=== PATIENT | female | born 1965 | race Caucasian/White ===

== ENCOUNTER → 2019-01-03 | Outpatient (CLI) | payer OTHER ==
--- NOTE | 2019-01-05 08:10 | CT ---
EXAMINATION TYPE: CT abdomen pelvis w con DATE OF EXAM: 01/03/2019 COMPARISON: None HISTORY: Diverticulitis CT DLP: 740 mGycm CONTRAST: CT scan of the abdomen and pelvis is performed with Oral Contrast and with IV Contrast, patient injec sarah with 100 ml mL of Isovue 300. FINDINGS: LUNG BASES-: No visible nodule. No infiltrate. LIVER/GB: No calcified gallstones. No space occupying hepatic lesion. Biliary tree is of normal ca liber. PANCREAS: No inflammation. No distinct mass. SPLEEN: No splenic enlargement. No lesion seen. ADRENALS: No nodule. No thickening. KIDNEYS/BLADDER: No hydronephrosis. No nephrolithiasis. No distinct renal mass. Urinary bladder g rossly unremarkable. BOWEL: Normal appendix. Normal bowel caliber. There is mild strandy attenuation adjacent to the sigm oid colon. Mild diverticulitis difficult to exclude. Correlate clinically. No evidence of perforation or abscess. GENITAL ORGANS: No gross abnormality. LYMPH NODES: No greater than 1cm abdominal or pelvic lymph nodes are appreciated. AORTA: No significant abnormality. OSSEOUS STRUCTURES: No significant abnormality is seen. OTHER: No significant additional abnormality is seen. IMPRESSION: 1. There is mild strandy attenuation adjacent to the sigmoid colon. Mild diverticulitis difficult to exclude. Correlate clinically. No evidence of perforation or abscess.
== END | disposition home or self-care (01) ==
LOC: RADCTMAIN 10:57
PROVIDERS: ATTEND Surgery Plastic and Reconstructive Surgery
DX: K57.92 Diverticulitis of intestine, part unspecified, without perforation or abscess without bleeding (principal)
CPT/HCPCS: 74177; Q9967

== ENCOUNTER → 2019-01-26 | Outpatient (CLI) | payer OTHER ==
--- NOTE | 2019-01-26 15:06 | NM ---
EXAMINATION TYPE: NM hepatobiliary w EF DATE OF EXAM: 01/26/2019 COMPARISON: CT abdomen and pelvis January 03, 2019. HISTORY: Gallstones per order. Epigastric and abdominal pain with diminished appetite heartburn and r eflux-like symptoms along with nausea per patient. TECHNIQUE: After the intravenous administration of 4.17 mCi Tc 99m Mebrofenin hepatobiliary scintigra phy is performed. Immediate images post injection. FINDINGS: There is satisfactory initial accumulation of tracer by the liver. The gallbladder is visualized wit hin 20 minutes. The small bowel activity is noted within 30 minutes. At one hour 8 ounces of oral e nsure plus is given to mimic CCK and gallbladder ejection fraction is calculated at 90 %, not deviate d from the normal range. Therefore there is no scintigraphic evidence of cystic or common bile duct obstruction to suggest acute cholecystitis. IMPRESSION: Ejection fraction is 90%, not deviated from the normal range.
== END | disposition home or self-care (01) ==
LOC: RADNMMAIN 12:48
PROVIDERS: ATTEND Surgery Plastic and Reconstructive Surgery
DX: K80.20 Calculus of gallbladder without cholecystitis without obstruction (principal)
CPT/HCPCS: 78226; A9537

== ENCOUNTER 2019-03-12 10:39 | Day surgery (SDC) | payer BC, OTHER ==
[2019-03-10 14:31] VITALS: BMI 19.7
--- NOTE | 2019-03-12 07:48 | P.GSHP ---
History of Present Illness H&P Date: 03/12/19 CHIEF COMPLAINT: GERD and colon screen HISTORY OF PRESENT ILLNESS: The patient is a 53-year-old female who presents with gastroesophageal reflux disease and need for colon screen. Upper and lower endoscopy were offered for further evaluation and management. PAST MEDICAL HISTORY: Please see list. PAST SURGICAL HISTORY: Please see list. MEDICATIONS: Please see list. ALLERGIES: Please see list. SOCIAL HISTORY: No illicit drug use FAMILY HISTORY: No reports of Crohn disease or ulcerative colitis. REVIEW OF ORGAN SYSTEMS: CONSTITUTIONAL: No reports of fevers or chills. GI: Denies any blood in stools or constipation. PHYSICAL EXAM: VITAL SIGNS: Stable GENERAL: Well-developed pleasant in no acute distress. HEENT: No scleral icterus. Extraocular movements grossly intact. Moist buccal mucosa. NECK: Supple without lymphadenopathy. CHEST: Unlabored respirations. Equal bilateral excursions. CARDIOVASCULAR: Regular rate and rhythm. Distal 2+ pulses. ABDOMEN: Soft, nondistended. MUSCULOSKELETAL: No clubbing, cyanosis, or edema. ASSESSMENT: 1. Gastroesophageal reflux disease 2. Colon screen. PLAN: 1. Recommend proceeding with an upper and lower endoscopy Past Medical History Past Medical History: Osteoarthritis (OA) Additional Past Medical History / Comment(s): migraines, hiatal hernia, ux ulcer, diff swallowing, "gas buildup", degenerative disks, History of Any Multi-Drug Resistant Organisms: None Reported Additional Past Surgical History / Comment(s): pain clinic procedure Past Anesthesia/Blood Transfusion Reactions: Motion Sickness Smoking Status: Current every day smoker - Past Family History Father Family Medical History: Cancer Medications and Allergies Home Medications Medication Instructions Recorded Confirmed Type ALPRAZolam [Xanax] 0.25 mg PO TID PRN 03/10/19 03/10/19 History Hydrocodone/Acetaminophen [[place] 1 tab PO TID 03/10/19 03/10/19 History 7.5-325] Omeprazole [PriLOSEC] 40 mg PO BID 03/10/19 03/10/19 History Allergies Allergy/AdvReac Type Severity Reaction Status Date / Time No Known Allergies Allergy Verified 03/10/19 14:22
[~2019-03-12 10:39] MED LIST: LACTATED RINGERS 1,000 ML IV SCH
[2019-03-12 11:33] VITALS: RESP 16; TEMP 99
[2019-03-12] MEDS ORDERED: LIDOCAINE 1% 20 ML VIAL (10MG/ML) FOR IV START INTRADERMA ONE (11:40)
[2019-03-12] MEDS ORDERED: LIDOCAINE 1% INJ 10MG/ML (20 ML MDV) ONE (11:44)
[2019-03-12] MEDS ORDERED: PROPOFOL 10 MG/ML 20 ML VIAL IV ONE (11:44)
--- NOTE | 2019-03-12 11:56 | P.PCN ---
Date of Procedure: 03/12/19 Description of Procedure: PREOPERATIVE DIAGNOSIS: Gastroesophageal reflux disease. POSTOPERATIVE DIAGNOSIS: Gastroesophageal reflux disease. Diaphragmatic hiatal hernia Chronic gastritis OPERATION: Esophagogastroduodenoscopy with biopsies along antrum. SURGEON: Erin Rich MD ANESTHESIA: MAC. INDICATIONS: The patient is a 53-year-old female who presents with a history of reflux disease. Benefits and risks of the procedure were described. Informed consent was obtained. DESCRIPTION: The patient was brought into the endoscopy suite and laid in the left lateral decubitus position. An Olympus gastroscope was passed along the posterior oropharynx down to the distal esophagus where the squamocolumnar junction was encountered at 37 cm from the incisors. The stomach was entered and no bile reflux was found. Additional findings are listed below. Biopsies with cold forceps were obtained of the antrum. The first through third portion of the duodenum was examined and unremarkable. Retroflexion of the scope confirmed Hill grade 3 lower esophageal valve. The squamocolumnar junction demonstrated LA grade B erosive esophagitis. The stomach was desufflated. The patient tolerated the procedure well. FINDINGS: Squamocolumnar junction 37 cm from the incisors. Diaphragmatic hiatus at 40 cm. Hiatal hernia, 3 cm Hill grade 3 lower esophageal valve. LA grade B erosive esophagitis. No active duodenitis. Chronic gastritis RECOMMENDATIONS: Upper endoscopy as needed.
--- NOTE | 2019-03-12 12:26 | P.PCN ---
Date of Procedure: 03/12/19 Description of Procedure: PREOPERATIVE DIAGNOSIS: Colonoscopy screening, first POSTOPERATIVE DIAGNOSIS: Colonoscopy screening, first Proximal transverse colon polyp OPERATION: Colonoscopy to the ileocecal valve and appendiceal orifice. Colonoscopy with cold forceps biopsy, proximal transverse colon SURGEON: Erin Rich MD. ANESTHESIA: MAC. INDICATIONS: The patient is a 53-year-old female who presents for colonoscopy screening. She presents for the first time for colonoscopy screening. Benefits and risks were described and informed consent was obtained. DESCRIPTION OF PROCEDURE: The patient had undergone Suprep. She had been brought into the operating room and laid in the left lateral decubitus position. After adequate intravenous sedation, the rectum was examined with 2% lidocaine jelly. No external hemorrhoids were encountered. The rectal tone was within normal limits. No lesions were palpated in the rectal vault. An Olympus colonoscope was advanced until the ileocecal valve and appendiceal orifice were clearly viewed. The prep was excellent with clear visualization of the mucosal folds. No scattered diverticulosis was encountered. At the proximal transverse colon, 4 mm tubular adenoma was cold forceps biopsy to completion. No evidence of focal colitis was found. Retroflexion of the scope demonstrated grade 1 internal hemorrhoids without active bleeding or inflammation. The colon was desufflated. The patient had tolerated the procedure well. Withdrawal time was over 6 minutes. FINDINGS: Aronchick preparation quality scale 1 (1-5) Internal hemorrhoids, grade 1 No external prolapsed hemorrhoids. No arteriovenous malformations. Removal of one polyp: - Cold forceps biopsies proximal transverse colon, 4 mm tubular villous adenoma No focal colitis. RECOMMENDATIONS: Repeat colonoscopy in 5 years, 2024 Plan - Discharge Summary New Discharge Prescriptions: No Action Hydrocodone/Acetaminophen [[place] 7.5-325] 1 tab PO TID ALPRAZolam [Xanax] 0.25 mg PO TID PRN PRN Reason: Anxiety Omeprazole [PriLOSEC] 40 mg PO BID Discharge Medication List ALPRAZolam [Xanax] 0.25 mg PO TID PRN 03/10/19 [History] Hydrocodone/Acetaminophen [[place] 7.5-325] 1 tab PO TID 03/10/19 [History] Omeprazole [PriLOSEC] 40 mg PO BID 03/10/19 [History] Follow up Appointment(s)/Referral(s): Erin Rich MD [STAFF PHYSICIAN] - 03/31/19 Patient Instructions/Handouts: *Surgery [facility] - (Anesthesia) Endoscopy Discharge Instructions, Gastritis (DC), Colorectal Polyps (DC), Colonoscopy (DC), Upper Endoscopy (DC), Colorectal Polyps (GEN) Activity/Diet/Wound Care/Special Instructions: Repeat colonoscopy 5 years, 2024 Discharge Disposition: HOME SELF-CARE
[2019-03-12 12:35] VITALS: BP 102/57; PULSE 81
== END 2019-03-12 12:50 | disposition home or self-care (01) ==
LOC: ORWHC2ENDO 10:39
PROVIDERS: ATTEND Surgery Plastic and Reconstructive Surgery
DX: Z12.11 Encounter for screening for malignant neoplasm of colon (principal); D12.3 Benign neoplasm of transverse colon; K64.0 First degree hemorrhoids; K29.50 Unspecified chronic gastritis without bleeding; K21.0 Gastro-esophageal reflux disease with esophagitis; K22.10 Ulcer of esophagus without bleeding; K44.9 Diaphragmatic hernia without obstruction or gangrene; M19.90 Unspecified osteoarthritis, unspecified site; G43.909 Migraine, unspecified, not intractable, without status migrainosus; F17.200 Nicotine dependence, unspecified, uncomplicated; Z79.899 Other long term (current) drug therapy; Z79.891 Long term (current) use of opiate analgesic
CPT/HCPCS: 81025; 88305; 45380; 43239; J2001; J2704

== ENCOUNTER 2019-11-23 08:46 | Day surgery (SDC) | payer BC ==
[2019-11-19 13:48] VITALS: BMI 19.2
[~2019-11-23 08:46] MED LIST changes: +DEXAMETHASONE SOD PHOSPHATE 10 MG/ML 1 ML VIAL IV ONE; +HYDROmorphone 0.5 MG/0.5 ML SYRINGE IVP PRN; +ONDANSETRON 4 MG/2 ML VIAL IVP ONE; +Pre Op ABX Message 1 EACH MISC MISCELLANE ONE; +SCOPOLAMINE 1.5MG/72HR PATCH TRANSDERM ONE
[2019-11-23] MEDS ORDERED: KETOROLAC 15 MG/ML 1 ML VIAL ONE (09:57)
[2019-11-23] MEDS ORDERED: LIDOCAINE 1% INJ 10MG/ML (20 ML MDV) ONE (09:57)
[2019-11-23] MEDS ORDERED: fentaNYL (PF) 50 MCG/ML 2 ML AMP ONE (09:57)
[2019-11-23] MEDS ORDERED: PROPOFOL 10 MG/ML 20 ML VIAL IV ONE (09:57)
[2019-11-23] MEDS ORDERED: MIDAZOLAM 2 MG/2 ML VIAL ONE (09:57)
--- NOTE | 2019-11-23 10:20 | P.OP ---
Date of Procedure: 11/23/19 Preoperative Diagnosis: Menorrhagia, metrorrhagia Postoperative Diagnosis: Same Procedure(s) Performed: Hysteroscopy, dilation and curettage, endometrial ablation with NovaSure Anesthesia: MAC Surgeon: Jennifer Hoyos Estimated Blood Loss (ml): 5 IV fluids (ml): 500 Urine output (ml): 150 Pathology: other (Endometrial curettings) Condition: stable Disposition: PACU Indications for Procedure: Heavy irregular menstrual bleeding Operative Findings: Proliferative endometrium Description of Procedure: Patient is seen in the preoperative area and informed consent is obtained. All questions are answered. Patient is taken back to the operating suite where general anesthesia was obtained without difficulty. She is prepped and draped in the normal sterile fashion in the dorsal lithotomy position. A red rubber catheter is used to drain the bladder clear yellow urine, a weighted speculum was placed in the posterior vaginal vault intralipids the cervix is visualized and grasped with single-tooth tenaculum. The endocervical canal was then dilated, the hysteroscope was placed through the cervix and toward the endometrial cavity. The endometrial cavity is noted to be proliferative. Pictures were taken. Hysteroscope was removed. A sharp curettage was then performed until gritty texture was noted in all 4 quadrants of the endometrial cavity. The NovaSure device was then opened and set to the appropriate measurements for this patient, length of 4, width 3.4, power of 75 for a total cycle length of 106. Cavity assessment was performed once cavity assessment was passed the cycle was allowed to complete. After cycle completion the NovaSure was removed in the usual fashion. The single-tooth tenaculum was taken off of the intralipids the cervix and hemostasis was appreciated. All counts were noted to be correct 2 patient tolerated procedure well. Patient was taken back to the recovery room in stable condition.
[2019-11-23 10:30] VITALS: TEMP 977
[2019-11-23 10:47] VITALS: RESP 18
[2019-11-23] MEDS ORDERED: ACETAMINOPHEN TAB 500 MG TAB ONE (11:16)
[2019-11-23] MEDS ORDERED: ACETAMINOPHEN TAB 500 MG TAB PO ONE (11:20)
[2019-11-23 12:01] VITALS: BP 103/60; PULSE 58
== END 2019-11-23 12:08 | disposition home or self-care (01) ==
LOC: OR 08:46
PROVIDERS: ATTEND Obstetrics & Gynecology Obstetrics
DX: N92.0 Excessive and frequent menstruation with regular cycle (principal); N94.6 Dysmenorrhea, unspecified; N83.209 Unspecified ovarian cyst, unspecified side; D25.9 Leiomyoma of uterus, unspecified; F17.210 Nicotine dependence, cigarettes, uncomplicated; F41.9 Anxiety disorder, unspecified; K21.9 Gastro-esophageal reflux disease without esophagitis; Z79.899 Other long term (current) drug therapy; Z80.8 Family history of malignant neoplasm of other organs or systems; Z82.49 Family history of ischemic heart disease and other diseases of the circulatory system; Z80.1 Family history of malignant neoplasm of trachea, bronchus and lung
CPT/HCPCS: 81025; 88305; 58563; J2250; J1100; J2405; J2001; J3010; J1885; J2704

== ENCOUNTER 2021-01-21 13:35 | Emergency (ER) | payer BC ==
[2021-01-21 13:56] VITALS: BP 125/70; PULSE 89; RESP 18; TEMP 98.5
[2021-01-21] MEDS ORDERED: PENICILLIN V POTASSIUM 250 MG TAB PO STA (15:47)
--- NOTE | 2021-01-21 15:53 | ED ---
General Adult HPI - General Chief complaint: Dental/Oral Stated complaint: Dental Pain Time Seen by Provider: 01/21/21 15:20 Source: patient, RN notes reviewed Mode of arrival: ambulatory Limitations: no limitations - History of Present Illness Initial comments: 55-year-old female presents to the emergency department for evaluation of dental pain. Patient states she was scheduled for dental work to be done last month but had to cancel her appointment. States she has a broken tooth on the left lower jaw and a painful tooth on the left upper. Patient reports sided facial swelling that began last night. States she took a [place] prior to arrival for relief of pain. Also states she took some old antibiotics that she had at home. Patient denies fever, chills, headache, chest pain, shortness of breath, nausea, and vomiting. - Related Data Home Medications Medication Instructions Recorded Confirmed ALPRAZolam [Xanax] 0.25 mg PO TID PRN 03/10/19 11/19/19 Hydrocodone/Acetaminophen [[place] 1 tab PO TID 03/10/19 11/19/19 7.5-325] Lansoprazole [Prevacid] 30 mg PO DAILY 11/19/19 11/19/19 Previous Rx's Medication Instructions Recorded Penicillin V Potassium [Pen Vee K] 500 mg PO QID 10 Days #40 tablet 01/21/21 Allergies Allergy/AdvReac Type Severity Reaction Status Date / Time No Known Allergies Allergy Verified 01/21/21 13:56 Review of Systems ROS Statement: Those systems with pertinent positive or pertinent negative responses have been documented in the HPI. ROS Other: All systems not noted in ROS Statement are negative. Past Medical History Past Medical History: Osteoarthritis (OA) Additional Past Medical History / Comment(s): migraines, hiatal hernia, ux ulcer, diff swallowing, "gas buildup", degenerative disks, History of Any Multi-Drug Resistant Organisms: None Reported Additional Past Surgical History / Comment(s): pain clinic procedure Past Anesthesia/Blood Transfusion Reactions: Motion Sickness Past Psychological History: Anxiety Smoking Status: Current every day smoker Past Alcohol Use History: None Reported Past Drug Use History: None Reported - Past Family History Father Family Medical History: Cancer General Exam Limitations: no limitations (Developed, well-nourished female in no acute distre ss. Initial temperature 98.5, pulse 89, respirations 18, blood pressure 125/70, pulse ox 98% on room air.) General appearance: alert, in no apparent distress Expanded Teeth exam: Present: dental caries, fractured tooth # (20), dental tenderness # (16), other (No localized abscess palpable, mild swelling left lower jaw does not extend below the mandible) Throat exam: normal inspection Neck exam: Present: normal inspection. Absent: tenderness, meningismus, lymphadenopathy Respiratory exam: Present: normal lung sounds bilaterally. Absent: respiratory distress, wheezes, rales, rhonchi, stridor Cardiovascular Exam: Present: regular rate, normal rhythm, normal heart sounds. Absent: systolic murmur, diastolic murmur, rubs, gallop, clicks Neurological exam: Present: alert, oriented X3, CN II-XII intact Psychiatric exam: Present: normal affect, normal mood Skin exam: Present: warm, dry, intact, normal color. Absent: rash Course Vital Signs 01/21/21 13:52 Temperature 98.5 F Pulse Rate 89 Respiratory 18 Rate Blood Pressure 125/70 O2 Sat by Pulse 98 Oximetry Medical Decision Making - Medical Decision Making 55-year-old female with a history of poor dental care, presents to the emergency department for evaluation of dental pain. Upon exam, patient has mild swelling to the left lower mouth that does not extend below the mandible. The area is soft with no localized area of firmness or fluctuance. Tooth #20 is broken and #16 is sore; states she is scheduled to have a root canal next month on the opposite side of her mouth. Patient is afebrile, not tachycardic, nor tachypneic. Patient is able to swallow without difficulty. Patient will be started on oral antibiotic and discharged home to call her dentist on Saturday. Patient is already taking [place] for chronic back pain. Return parameters were discussed in detail. Patient verbalizes understanding and agrees with this plan. This patient's care was discussed with my attending Dr. Dial. Disposition Clinical Impression: Dental caries, Dental abscess Disposition: HOME SELF-CARE Condition: Stable Instructions (If sedation given, give patient instructions): Dental Abscess (ED), Toothache (ED) Additional Instructions: Call your dentist on Saturday to schedule an appointment. Take antibiotic as directed. Swish with warm salt water. Take home medications as needed for pain. Return to the emergency department with any new, worsening, or concerning symptoms. Prescriptions: Penicillin V Potassium [Pen Vee K] 500 mg PO QID 10 Days #40 tablet Is patient prescribed a controlled substance at d/c from ED?: No Referrals: Robi Laureano MD [Primary Care Provider] - 1-2 days Time of Disposition: 16:01
== END 2021-01-21 16:27 | disposition home or self-care (01) ==
LOC: EC 13:35
DX: K04.7 Periapical abscess without sinus (principal); K02.9 Dental caries, unspecified; M19.90 Unspecified osteoarthritis, unspecified site; F41.9 Anxiety disorder, unspecified; F17.200 Nicotine dependence, unspecified, uncomplicated
CPT/HCPCS: 99282

== ENCOUNTER → 2021-12-22 | Outpatient (CLI) | payer BC ==
--- NOTE | 2021-12-25 07:38 | PE ---
EXAMINATION TYPE: PET CT fusion skull to thigh DATE OF EXAM: 12/22/2021 COMPARISON: Outside chest CT November 21, 2021 HISTORY: Abnormal CT, solitary pulmonary nodule TECHNIQUE: Following the intravenous administration of 11.93 mCi of F-18 FDG, whole body images are performed from the skull base to the midthigh. Images are reviewed on the computer in the coronal, a xial, and sagittal planes. Reconstructed rotating images are created on independent workstation and reviewed on the computer. A localization and attenuation correction CT is performed in conjunction with the PET scan. Blood glucose level equals 91 SCAN: Initial Scan FINDINGS: SKULL BASE AND NECK: No areas of abnormal hypermetabolic uptake. CHEST, MEDIASTINUM, AND HILAR REGION: Mild/moderate underlying emphysematous changes redemonstrated. Areas of irregular soft tissue density having linear and more thickened components anteriorly in the mid to lower lungs bilaterally is redemonstrated. Largest nodular component in the right middle lobe measures 2.1 x 1.7 cm axial image 122. There is additional area of 8 mm nodularity in the periphery o f the right upper to midlung posterior lateral aspect axial image 95 now identified which wasn't pres ent on prior. Max SUV 2.2 at this level. Mild hypermetabolic uptake, max SUV is 3.22 anteriorly axial image 126. ABDOMEN AND PELVIS: No areas of abnormal hypermetabolic uptake. Normal excretion. Patient has little intra-abdominal fat. OSSEOUS STRUCTURES: No areas of abnormal hypermetabolic findings . OTHER CT: Mild calcified plaque posterior left carotid bulb. Poorly distended bladder with lobulated contour. IMPRESSION: Findings favor inflammatory or infectious etiology. Mild hypermetabolic uptake with bilat eral involvement and some change from outside CT. Neoplasm much less likely but not entirely excluded . Short-term CT and or PET/CT follow-up in 3-6 months time is advised to reassess.
== END | disposition home or self-care (01) ==
LOC: RADPETMAIN 13:17
PROVIDERS: ATTEND Family Medicine
DX: R91.8 Other nonspecific abnormal finding of lung field (principal); R93.89 Abnormal findings on diagnostic imaging of other specified body structures
CPT/HCPCS: 78815; A9552